=== PATIENT | male | born 1975 | race Hispanic/Latino ===

== ENCOUNTER → 2020-01-27 | Emergency (ER) | payer OTHER ==
[~2020-01-27] VITALS: Ht 175.3 cm; Wt 99.8 kg
[~2020-01-27] MED LIST: ACETAMINOPHEN500 MG PO
--- NOTE | 2020-01-28 17:17 | EKG ---
[facility] [address] [facility] [place], [place] [address] Signed Normal sinus rhythm Normal ECG No previous ECGs available Confirmed by BLAIRE PASTOR MD [id number] on 01/28/2020 5:17:39 PM Electronically Signed By: BLAIRE PASTOR MD 01/28/20 1717 PATIENT NAME: SACHAMATILDA Electrocardiogram DATE OF : 71 PHYSICIAN: BLAIRE PASTOR MD REPORT #: [id number] REPORT IS CONFIDENTIAL AND NOT TO BE RELEASED WITHOUT AUTHORIZATION
== END ==
LOC: ED 19:59
DX: U07.1 COVID-19 (principal); J12.89 Other viral pneumonia; J80 Acute respiratory distress syndrome
CPT/HCPCS: 36600; 71045; 71260; 80053; 81001; 82803; 83605; 83615; 83880; 84484; 85025; 85379; 85610; 85730; 93005; 93010; 94640; 99291; 99292; C9803; J1100; J1650; Q9967; U0002